=== PATIENT | female | born 1950 | race Caucasian/White ===

== ENCOUNTER 2020-03-07 13:35 | Emergency (ER) | payer MEDICARE ==
[~2020-03-07] VITALS: Ht 175.3 cm; Wt 62.5 kg
--- NOTE | 2020-03-07 14:16 | NUR ---
Pt here for right upper quadrant and lower rigth quadrant abd pain. Pt reports she had had it going on for about a week and not feeling well. PCP recommneded and Ultrasound but unable to get her in. Since pt is getting worse sugggested she come here. Pt has no n/v/d. Pt connected to monitors and abulated very well. Pt is tender to palpation of right flank and right upper quadrant. Pt provided UA without difficulty. Awaiting further orders.
[2020-03-07 14:24] LABS: ALANINE AMINOTRANSFERASE 50 U/L (12-78); ALBUMIN 4.3 g/dL (3.4-5.0); ANION GAP 9 mmol/L (5-15); CALCIUM 9.6 mg/dL (8.5-10.1); CHLORIDE 100 mmol/L (98-107); CREATININE 0.78 mg/dL (0.55-1.02)
[2020-03-07 14:26] LABS: ALKALINE PHOSPHATASE 57 U/L (45-117); BILIRUBIN,TOTAL 0.6 mg/dL (0.2-1.0); TOTAL PROTEIN 8.3 g/dL (6.4-8.2)
[2020-03-07 14:32] LABS: MICROSCOPIC NOT IND
[2020-03-07 15:13] LABS: MEAN CORPUSCULAR HGB CONC 34.5 g/dL (32.4-35.8); MEAN CORPUSCULAR VOLUME 104.3 fL (80-100); MEAN PLATELET VOLUME 8.4 fL (7.4-10.4); PLATELET COUNT 134 x10^3/uL (130-400); RED BLOOD COUNT 3.83 x10^6/uL (3.82-5.3); RED CELL DISTRIBUTION WIDTH 12.9 % (9.6-15.2)
[2020-03-07] MEDS ORDERED: SODIUM CHLORIDE FLUSH 10ML SYR IVF ONE (16:00)
[2020-03-07 16:33] LABS: MD YES
[2020-03-07 16:40] LABS: BASOS#(MANUAL) 0.03 x10^3/uL (0-0.1); BASOS% (MANUAL) 1 % (0-1); EOS#(MANUAL) 0.03 x10^3/uL (0.0-0.4); EOS% (MANUAL) 1 % (1-7); LYMPHS% (MANUAL) 43 % (22-44); MONOS#(MANUAL) 0.45 x10^3/uL (0.3-2.7); MONOS% (MANUAL) 16 % (2-9); REACTIVE LYMPHS # (MANUAL) 0.11 x10^3/uL (0-0); REACTIVE LYMPHS % (MANUAL) 4 % (0-0); SEG#(MANUAL) 0.98 x10^3/uL (1.8-6.8); SEGS% (MANUAL) 35 % (42-75)
[2020-03-07 16:42] LABS: <PLATELET ESTIMATE> ADEQUATE; <PLT MORPHOLOGY> NORMAL PLT MORPH; POLYCHROMASIA 1+
--- NOTE | 2020-03-07 17:45 | NUR ---
Chart up for recheck at this time.
[2020-03-07 17:55] VITALS: BP 132/84
--- NOTE | 2020-03-07 18:11 | NUR ---
discharge instructions reviewed
--- NOTE | 2020-03-07 18:11 | NUR ---
CHRISTINE Mixon at bedside for evaluation
== END 2020-03-07 18:25 | disposition home or self-care (01) ==
LOC: ED 14:06
DX: K80.50 Calculus of bile duct without cholangitis or cholecystitis without obstruction (principal); Z90.710 Acquired absence of both cervix and uterus
CPT/HCPCS: 36415; 74177; 76700; 80053; 81003; 83690; 85025; 99285

== ENCOUNTER 2020-03-14 09:35 | Emergency (ER) | payer MEDICARE ==
[~2020-03-14] VITALS: Ht 175.3 cm; Wt 60.0 kg
--- NOTE | 2020-03-14 10:30 | NUR ---
PT WITH C/O ABD PAIN STATES HAS NOT RESOLVED DESPITE RECENT ADMIT AND PCP VISIT. PT DENIES REBOUND PAIN, N/V/D PIV INITIATED, LABS DRAWN AND SENT
[2020-03-14 10:51] LABS: MEAN CORPUSCULAR HGB CONC 35.2 g/dL (32.4-35.8); MEAN CORPUSCULAR VOLUME 102.3 fL (80-100); MEAN PLATELET VOLUME 8.5 fL (7.4-10.4); PLATELET COUNT 199 x10^3/uL (130-400); RED BLOOD COUNT 3.92 x10^6/uL (3.82-5.3); RED CELL DISTRIBUTION WIDTH 12.8 % (9.6-15.2)
[2020-03-14 10:58] VITALS: BP 192/68
--- NOTE | 2020-03-14 10:59 | NUR ---
Task rn: YOLANDE Howe collected and sent Updated on estimated poc
[2020-03-14] MEDS ORDERED: SODIUM CHLORIDE FLUSH 10ML SYR IVF ONE (11:00)
[2020-03-14 11:01] LABS: ALANINE AMINOTRANSFERASE 44 U/L (12-78); ALBUMIN 4.3 g/dL (3.4-5.0); ANION GAP 8 mmol/L (5-15); CALCIUM 9.6 mg/dL (8.5-10.1); CHLORIDE 101 mmol/L (98-107); CREATININE 0.74 mg/dL (0.55-1.02)
[2020-03-14 11:05] LABS: ALKALINE PHOSPHATASE 55 U/L (45-117); BILIRUBIN,TOTAL 0.7 mg/dL (0.2-1.0); TROPONIN I < 0.015 ng/mL (0.000-0.045)
[2020-03-14 11:10] LABS: MICROSCOPIC NOT IND
[2020-03-14 11:29] LABS: BASOPHILS # (AUTO) 0.01 x10^3/uL (0-0.1); BASOPHILS % (AUTO) 0 % (0-1); EOSINOPHILS # (AUTO) 0.02 x10^3/uL (0-0.4); EOSINOPHILS % (AUTO) 1 % (1-7); LYMPHOCYTES # (AUTO) 0.82 x10^3/uL (1-3.4); LYMPHOCYTES % (AUTO) 30 % (22-44); MD MORPH REVIEW ONLY; MONOCYTES # (AUTO) 0.37 x10^3/uL (0.2-0.8); MONOCYTES % (AUTO) 14 % (2-9); NEUTROPHILS # (AUTO) 1.52 x10^3/uL (1.8-6.8); NEUTROPHILS % (AUTO) 55 % (42-75)
[2020-03-14 11:30] LABS: <PLATELET ESTIMATE> ADEQUATE; ANISOCYTOSIS 1+; LARGE PLATELETS 1+
[2020-03-14] MEDS ORDERED: OMNIPAQUE 350 MG/ML, 100ML BOTTLE ONE (12:09)
== END 2020-03-14 14:31 ==
LOC: ED 10:11
DX: D72.819 Decreased white blood cell count, unspecified (principal); Z90.710 Acquired absence of both cervix and uterus; R10.10 Upper abdominal pain, unspecified; R11.0 Nausea; R94.31 Abnormal electrocardiogram [ECG] [EKG]
CPT/HCPCS: 36415; 71275; 74175; 80053; 81003; 83690; 83880; 84484; 85025; 93005; 99285; Q9967